=== PATIENT | male | born 1960 | race Caucasian/White ===

== ENCOUNTER 2017-05-31 08:22 | Emergency (ER) | payer MEDICAID, OTHER ==
[~2017-05-31] VITALS: Ht 182.9 cm; Wt 86.4 kg
[~2017-05-31 08:22] MED LIST: FENO145T38 PO; ZES10T PO
[2017-05-31] MEDS ORDERED: aspirin 81mg tab.chew PO ONE (08:40)
[2017-05-31 08:51] LABS: BASOPHILS % (AUTO) 0.1 % (0-1); EOSINOPHILS # (AUTO) 0.2 X10'3 (0-0.9); EOSINOPHILS % (AUTO) 1.7 % (0-6); HEMATOCRIT 48.7 % (42.0-52.0); HEMOGLOBIN 16.9 g/dl (14.0-17.9); LYMPHOCYTES # (AUTO) 2.5 X10'3 (1.1-4.8); LYMPHOCYTES % (AUTO) 16.9 % (21-51); MEAN CORPUSCULAR HEMOGLOBIN 33.2 PG (27.0-31.0); MEAN CORPUSCULAR HGB CONC 34.6 % (33.0-36.5); MEAN PLATELET VOLUME 7.5 FL (7.4-10.4); MONOCYTES % (AUTO) 6.5 % (2-12); NEUTROPHILS # (AUTO) 11.2 X10'3 (1.8-7.7); NEUTROPHILS % (AUTO) 74.8 % (42-75); PLATELET COUNT 259 X10'3 (140-440); RED BLOOD COUNT 5.08 X10'6 (4.70-6.10); RED CELL DISTRIBUTION WIDTH 13.2 % (11.5-14.5); WHITE BLOOD COUNT 14.9 X10'3 (4.5-11.0)
[2017-05-31] MEDS ORDERED: ondansetron/PF 4mg/2ml inj IV ONE (09:05)
[2017-05-31 09:14] LABS: D-DIMER 0.71 MG/L FEU (0-0.50)
[2017-05-31 09:15] LABS: PARTIAL THROMBOPLASTIN TIME 26 SECONDS (22-32); PROTHROMBIN TIME 10.7 SECONDS (9.0-12.0)
[2017-05-31 09:17] LABS: ALANINE AMINOTRANSFERASE 54 U/L (12-78); ALBUMIN 4.2 G/DL (3.4-5.0); ALBUMIN/GLOBULIN RATIO 1.1 (1.1-1.5); ALKALINE PHOSPHATASE 91 IU/L (46-116); ANION GAP 17 (8-16); ASPARTATE AMINO TRANSFERASE 53 U/L (10-37); BLOOD UREA NITROGEN 21 MG/DL (7-18); BUN/CREATININE RATIO 14.2 (5.4-32.0); CALCIUM 9.3 MG/DL (8.5-10.1); CHLORIDE 101 MMOL/L (99-107); CREATININE 1.48 MG/DL (0.60-1.10); GLUCOSE 153 MG/DL (70-104); LIPASE 169 U/L (73-393); MAGNESIUM 1.2 MG/DL (1.5-2.4); POTASSIUM 3.5 MMOL/L (3.5-5.1); SODIUM 141 MMOL/L (135-145); TOTAL CARBON DIOXIDE 22.9 MMOL/L (24-32); TOTAL PROTEIN 8.2 G/DL (6.4-8.2); eGFR 49 ML/MIN
[2017-05-31] MEDS: nitroGLYCERIN 0.4mg SUBLingual tab SL PRN ×3 (09:22→10:59)
[2017-05-31] MEDS ORDERED: morphine 4 MG/ML inj SYRINge IV ONE (09:35)
[2017-05-31] MEDS ORDERED: normal saline 1000ML IV soln IVB ONE ×2 (09:50→11:35)
[2017-05-31] MEDS ORDERED: iohexol 350MG/ML 100ml bottle IV ONE (10:08)
[2017-05-31 13:23] VITALS: BP 151/92
== END 2017-05-31 13:26 ==
LOC: EEVIPCON 08:23 → ER 08:23
DX: R07.9 Chest pain, unspecified (principal); I10 Essential (primary) hypertension; Z90.81 Acquired absence of spleen; Z79.899 Other long term (current) drug therapy
CPT/HCPCS: 36415; 71045; 71275; 80053; 83690; 83735; 83880; 84484; 85025; 85379; 85610; 85730; 93005; 96361; 96374; 96375; 99285; J2270; J2405; J7030; Q9967